=== PATIENT | female | born 2000 | race Caucasian/White ===

== ENCOUNTER 2018-07-25 17:21 | Emergency (ER) | payer OTHER ==
[~2018-07-25] VITALS: Ht 154.9 cm; Wt 113.9 kg
[2018-07-25 17:50] VITALS: BP 143/67
[2018-07-25 21:30] VITALS: BP 135/73
== END 2018-07-25 21:30 | disposition home or self-care (01) ==
LOC: MED 17:21
DX: S06.0X0A Concussion without loss of consciousness, initial encounter (principal); W22.01XA Walked into wall, initial encounter; Y93.89 Activity, other specified; Y92.89 Other specified places as the place of occurrence of the external cause; Y99.8 Other external cause status
CPT/HCPCS: 70450; 81025; 99284

== ENCOUNTER 2018-08-13 13:37 | Emergency (ER) | payer OTHER ==
[~2018-08-13] VITALS: Ht 165.1 cm; Wt 117.5 kg
[2018-08-13 13:43] VITALS: BP 126/60
[2018-08-13 15:48] VITALS: BP 131/65
== END 2018-08-13 15:48 | disposition home or self-care (01) ==
LOC: MED 13:37
DX: R21 Rash and other nonspecific skin eruption (principal); Z90.49 Acquired absence of other specified parts of digestive tract
CPT/HCPCS: 99283

== ENCOUNTER 2018-10-28 02:05 | Emergency (ER) | payer OTHER ==
[~2018-10-28] VITALS: Ht 157.5 cm; Wt 117.5 kg
[2018-10-28 02:10] VITALS: BP 140/90
--- NOTE | 2018-10-28 02:11 | NUR ---
TO BED #05 AMBULATORY, REPORT GIVEN TO TONY JOHNSTON
--- NOTE | 2018-10-28 02:17 | NUR ---
18 YO F BIB SELF PRESENTS TO THE ED WITH C/O SORE THROAT AND YA X 2 DAYS. PT STATES SHE HAS DIFFICULTY SWALLOWING D/T THE PAIN. DENIES FEVER. DENIES NVD. -- WHITE SPOTS NOTED TO TONSILS UPON INSPECTION. -- PMH: DENIES -- RX: DENIES PT POSITIONED FOR COMFORT. HOB ELEVATED. SIDE RAIL UP X 1. BED IN LOWEST POSITION. VSS. NO APPARENT DISTRESS AT THIS TIME.
[2018-10-28] MEDS ORDERED: AMOXICILLIN 500 MG CAP PO ONE (02:30)
[2018-10-28 02:40] VITALS: BP 140/90
--- NOTE | 2018-10-28 02:40 | NUR ---
Patient discharged with v/s stable. Written and verbal after care instructions given and explained. Patient alert, oriented and verbalized understanding of instructions. Ambulatory with steady gait. All questions addressed prior to discharge. ID band removed. Patient advised to follow up with PMD. Rx of Ibuprofen and Amoxicillin given. Patient educated on indication of medication including possible reaction and side effects. Opportunity to ask questions provided and answered.
== END 2018-10-28 02:40 | disposition home or self-care (01) ==
LOC: MED 02:05
DX: J02.0 Streptococcal pharyngitis (principal)
CPT/HCPCS: 99283

== ENCOUNTER 2019-02-27 00:12 | Emergency (ER) | payer OTHER ==
[~2019-02-27] VITALS: Ht 160 cm; Wt 120.7 kg
[2019-02-27 00:23] VITALS: BP 144/84
== END 2019-02-27 04:39 | disposition home or self-care (01) ==
LOC: MED 00:12
DX: R10.9 Unspecified abdominal pain (principal)
CPT/HCPCS: 81002; 81025; 99282